=== PATIENT | female | born 2000 | race Hispanic/Latino ===

== ENCOUNTER 2020-07-13 15:47 | Emergency (ER) | payer OTHER ==
--- NOTE | 2020-07-13 17:05 | RAD ---
3 views of the right fourth finger: 07/12/2020 COMPARISON: None HISTORY: Injury, trauma, pain FINDINGS: There is soft tissue swelling with subcutaneous gas associated with the distal tip of the f ourth finger consistent with laceration. There is an associated comminuted obliquely oriented mildly displaced fracture involving the distal aspect of the fourth distal phalanx. There is an assoc iated nailbed injury. IMPRESSION: Open mildly displaced comminuted obliquely oriented fracture involving the distal aspect of the fourth distal phalanx.
[2020-07-13] MEDS ORDERED: Ketorolac Tromethamine 30 MG/ML VIAL ONE (17:15)
[2020-07-13] MEDS ORDERED: Lidocaine 1% PF 5 ML VIAL ONE (17:15)
== END 2020-07-13 18:22 | disposition home or self-care (01) ==
LOC: ERS 15:47
DX: S62.634A Displaced fracture of distal phalanx of right ring finger, initial encounter for closed fracture (principal); W23.0XXA Caught, crushed, jammed, or pinched between moving objects, initial encounter
CPT/HCPCS: 11740; 96372; J1885

== ENCOUNTER 2021-03-23 23:10 | Emergency (ER) | payer OTHER ==
[2021-03-23 23:42] LABS: Hemoglobin 13.4 g/dL (12.0-16.0); Mean Corpuscular HGB CONC 33.2 g/dL (32.0-36.0); Mean Corpuscular Hemoglobin 29.6 pg (27.0-31.0); Mean Corpuscular Volume 89.1 fL (78.0-98.0); Mean Platelet Volume 8.5 fL (7.4-10.4); Platelet Count 258 thou/uL (130-400); RBC Distribution Width 12.5 % (11.5-14.5); Red Blood Cell (RBC) Count 4.54 mill/uL (4.20-5.40); White Blood Cell (WBC) Count 7.8 thou/uL (4.8-10.8)
[2021-03-23 23:55] LABS: ALT (SGPT) 33 U/L (8-55); AST (SGOT) 25 U/L (5-34); Albumin 4.4 g/dL (3.5-5.0); Alkaline Phosphatase 73 U/L (40-110); Anion Gap 12 mmol/L (10-20); BUN (Urea Nitrogen) 8 mg/dL (7.0-18.7); Bilirubin, Total 0.3 mg/dL (0.2-1.2); Calc. Creatinine Clearance 0 mL/min (70-130); Calcium 9.5 mg/dL (7.8-10.44); Carbon Dioxide 27 mmol/L (22-29); Chloride 103 mmol/L (98-107); Globulin 3.4 g/dL (2.4-3.5); Glucose 102 mg/dL (70-105); Protein, Total 7.8 g/dL (6.0-8.3); Sodium 138 mmol/L (136-145)
[2021-03-23 23:59] LABS: Band 9 % (5-11); Lymphocytes 10 % (21-51); MDiff Complete? YES; Monocytes 1 % (0-10); Neutrophil 80 % (42-75); Platelet Morphology Comment Appears Adequate; RBC Morphology Normal
[2021-03-24] MEDS ORDERED: Acetaminophen 500 MG TAB ONE (00:08)
[2021-03-24 00:16] LABS: Bilirubin Negative (Negative); Blood, Urine Negative (Negative); Clarity Clear (Clear); Glucose, Urine (Dipstick) Normal (Negative); Ketone, Urine Negative (Negative); Leukocyte Negative Leu/uL (Negative); Nitrite Negative (Negative); Protein, Urine (Dipstick) Negative (Neg-Trace); Specific Gravity, Urine 1.008 (1.002-1.036); Urobilinogen Normal mg/dL (Less than 2); pH, Urine 6.5 (5.0-9.0)
[2021-03-24 00:46] LABS: BHCG - Serum Negative (NEGATIVE); Pregs Control Background? CLEAR/WHITE (CLR/WHITE); Pregs Control Bar Appear? YES (CONTROL BAR)
[2021-03-24] MEDS ORDERED: Ketorolac Tromethamine 30 MG/ML VIAL ONE (00:58)
[2021-03-24 02:51] LABS: SARS-CoV-2 NAA Rapid Test DETECTED (NotDetected)
== END 2021-03-24 02:29 | disposition home or self-care (01) ==
LOC: ERS 23:10
DX: U07.1 COVID-19 (principal)
CPT/HCPCS: 71045; 80053; 81003; 83605; 84703; 85025; 96374; J1885; U0002; U0005

== ENCOUNTER 2022-02-01 10:41 | Outpatient (CLI) | payer BC ==
[2022-02-01 13:09] LABS: BHCG - Serum Negative (NEGATIVE); Pregs Control Background? CLEAR/WHITE (CLR/WHITE); Pregs Control Bar Appear? YES (CONTROL BAR)
== END 2022-02-01 10:42 | disposition home or self-care (01) ==
LOC: LABBT 10:41
PROVIDERS: ATTEND Student in an Organized Health Care Education/Training Program
DX: Z01.812 Encounter for preprocedural laboratory examination (principal); J35.01 Chronic tonsillitis; J31.2 Chronic pharyngitis; J35.8 Other chronic diseases of tonsils and adenoids; Z20.822 Contact with and (suspected) exposure to COVID-19
CPT/HCPCS: 84703; 85014; U0003; U0005

== ENCOUNTER 2022-02-06 06:36 | Day surgery (SDC) | payer BC ==
[2022-02-02 11:54] VITALS: BMI 36.6
[2022-02-06] MEDS ORDERED: Midazolam HCl 2 mg/2 ml Vial ONE (08:10)
[2022-02-06] MEDS ORDERED: fentaNYL Citrate/PF 100 MCG/2 ML SYRINGE ONE (08:10)
[2022-02-06] MEDS ORDERED: PROPOFOL 200 MG/20 ML VIAL ONE (08:27)
[2022-02-06] MEDS ORDERED: Dexamethasone 20 MG/5 ML VIAL ONE (08:27)
[2022-02-06] MEDS ORDERED: Ondansetron PF 4 MG/2 ML Vial ONE (08:27)
[2022-02-06] MEDS ORDERED: Lidocaine 1% PF 5 ML VIAL ONE (08:27)
[2022-02-06] MEDS ORDERED: Succinylcholine 200 MG/10 ml SYRINGE FS ONE (08:27)
[2022-02-06] MEDS ORDERED: Fentanyl 100 MCG/2 ML VIAL ONE (10:04)
[2022-02-06] MEDS ORDERED: HYDROcodone/Acetaminophen 5/325 mg Tablet ONE (11:06)
== END 2022-02-06 11:59 | disposition home or self-care (01) ==
LOC: SDC 06:36
PROVIDERS: ATTEND Student in an Organized Health Care Education/Training Program
PROC: 0CTPXZZ Resection of Tonsils, External Approach (ICD-10-PCS; principal; 2022-02-06)
DX: J03.91 Acute recurrent tonsillitis, unspecified (principal); J35.01 Chronic tonsillitis
CPT/HCPCS: 88304; J1100; J2250; J2405; J2704; J3010

== ENCOUNTER 2023-03-16 06:04 | Emergency (ER) | payer BC ==
[2023-03-16 07:05] LABS: #Monocytes 0.5 thou/uL (0.11-0.59); #Neutrophils 5.8 thou/uL (1.40-6.50); %Basophils 0.5 % (0.0-1.0); %Eosinophils 0.4 % (0.0-10.0); %Lymphocytes 25.3 % (21.0-51.0); %Monocytes 5.6 % (0.0-10.0); %Neutrophils 67.7 % (42.0-75.0); Hemoglobin 10.7 g/dL (12.0-16.0); Mean Corpuscular Hemoglobin 23.5 pg (27.0-31.0); Mean Corpuscular Volume 75.8 fl (78.0-98.0); Mean Platelet Volume 10.6 fL (7.4-10.4); Platelet Count 322 10x3/uL (130-400); RBC Distribution Width 17.8 % (11.5-14.5); Red Blood Cell (RBC) Count 4.55 mill/uL (4.20-5.40); White Blood Cell (WBC) Count 8.6 10x3/uL (4.8-10.8)
[2023-03-16 07:57] LABS: BHCG - Serum Negative (NEGATIVE); Pregs Control Background? CLEAR/WHITE (CLR/WHITE); Pregs Control Bar Appear? YES (CONTROL BAR)
[2023-03-16 08:59] LABS: Amphetamine Not Detected (NotDetected); Barbiturates Screen Not Detected (NotDetected); Benzodiazepine Screen Not Detected (NotDetected); Cocaine Metabolite Screen Not Detected (NotDetected); Methadone Not Detected (NotDetected); Methamphetamine Not Detected (NotDetected); Opiate Screen Not Detected (NotDetected); Oxycodone Screen Not Detected (NotDetected); Phencyclidine (PCP) Not Detected (NotDetected); THC/Cannabinoid Screen Not Detected (NotDetected); Tricyclic Screen Not Detected (NotDetected)
[2023-03-16 09:23] LABS: Albumin 4.5 g/dL (3.5-5.0)
[2023-03-16 09:24] LABS: Chloride 109 mmol/L (98-107); Potassium 3.7 mmol/L (3.5-5.1); Sodium 145 mmol/L (136-145)
[2023-03-16 09:26] LABS: Alcohol 191.7 mg/dL (Less than 10); Globulin 3.4 g/dL (2.4-3.5); Glucose 108 mg/dL (70-105); Protein, Total 7.9 g/dL (6.0-8.3)
[2023-03-16 09:27] LABS: Anion Gap 17 mmol/L (10-20); Carbon Dioxide 23 mmol/L (22-29)
[2023-03-16 09:28] LABS: Alkaline Phosphatase 68 U/L (40-110); Bilirubin, Total 0.2 mg/dL (0.2-1.2)
[2023-03-16 09:29] LABS: Acetaminophen Less than 10 mcg/mL (10.0-30.0); Calc. Creatinine Clearance 0 mL/min (70-130); Estimated GFR 105; Salicylate Less than 8.0 mg/dL (15.0-30.0)
[2023-03-16 09:30] LABS: BUN (Urea Nitrogen) 7 mg/dL (7.0-18.7)
[2023-03-16 09:31] LABS: AST (SGOT) 18 U/L (5-34)
[2023-03-16 09:32] LABS: ALT (SGPT) 19 U/L (8-55)
== END 2023-03-16 10:04 | disposition home or self-care (01) ==
LOC: ERS 06:04
DX: F10.129 Alcohol abuse with intoxication, unspecified (principal); Y90.6 Blood alcohol level of 120-199 mg/100 ml
CPT/HCPCS: 36415; 36416; 80053; 80306; 80307; 84703; 85025; 93005